=== PATIENT | female | born 2000 | race American Indian/Alaskan Native ===

== ENCOUNTER 2019-07-28 02:58 | Inpatient (IN) | payer MEDICAID ==
[2019-07-28] MEDS ORDERED: Misoprostol 400 MCG (4 X 100 MCG TAB) RECTAL PRN (03:58)
[2019-07-28] MEDS ORDERED: fentaNYL 100 MCG/2 ML SDV IVPUSH PRN (03:58)
[2019-07-28] MEDS ORDERED: Tranexamic Acid 1,000 MG in Sodium Chloride 0.9% 100 ML IV PRN (03:58)
[2019-07-28] MEDS ORDERED: Carboprost Tromethamine 250 MCG/1 ML Amp IM PRN (03:58)
[2019-07-28] MEDS ORDERED: Lactated Ringers 1,000 ML IV ONE (03:58)
[2019-07-28] MEDS ORDERED: Methylergonovine 0.2 MG/1 ML Amp IM PRN (03:58)
[2019-07-28] MEDS ORDERED: Sodium Chloride 0.9% 10 ML Syringe FLUSH PRN ×2 (03:58→23:09)
[2019-07-28] MEDS ORDERED: Acetaminophen 325 MG Tab PO PRN ×2 (03:58→23:09)
[2019-07-28] MEDS ORDERED: Lidocaine 1% 30 ML SDV INJECT PRN (03:58)
[2019-07-28] MEDS ORDERED: Ondansetron 4 MG/2 ML SDV IV PRN (03:58)
[2019-07-28] MEDS ORDERED: Oxytocin/Normal Saline 30 UNIT/500 ML BAG IV SCH ×5 (04:00→11:00)
--- NOTE | 2019-07-28 04:20 | PCM.SN ---
- Free Text/Narrative Note: OB History and Physical 07/28/19 Chief Complaint: rupture of membranes HPI: Derik is a 19 year old G1 at 39w3d (08/01/19) who presents with rupture of membranes around 0230 today with a large gush of fluid. She noted some back pain while at work yesterday around 1800, but it wasn't bad. She can feel the contractions, but noted they are not painful. Baby had a lower baseline on admission and US confirmed good cardiac movement. She reports active movement. ROS: Negative for headache, nausea, vomiting, diarrhea, fever, chills, hematuria , dysuria or bleeding per vagina. Allergies: NKDA Medications: vitamins Medical Hx: Acne Surgical Hx: Tonsillectomy Family Hx: Mom has HTN, brother and sister with asthma. No known history of bleeding/clotting disorders or genetic disorders. OB Hx: G1 Social Hx: Lives with boyfriend and his parents, originally from [place], [place]. Denies smoking, drinking or recreational drugs. Labs: Blood Type: A Positive Rubella: Non-Immune HBSAg: Nonreactive GBS: Negative Gonorrhea/Chlamydia: Not Detected HIV: Nonreactive RPR: Nonreactive Physical Exam: Vitals: BP 119/70, HR 98, Temp 98.2, SpO2 98% Gen: No distress CV: Well-perfused, 2+ distal pulses, regular rate and rhythm, no audible murmurs Resp: Non-labored, symmetrical chest expansion, clear to auscultation Abd: gravid, soft, non tender Ext: Moves all extremities, no edema. SVE: 2/75/-3 FHT: Baseline HR 110, moderate variability, accelerations present, no decelerations appreciated CTX: Q 2-7 mins Assessment: Derik is a 19 year old G1 at 39w3d (08/01/19) who presents with rupture of membranes around 0230. Cat I Strip. Plan: - admit for labor - routine cares - if no cervical change in 4 hours, will consider augmentation - pain medicine available when/if needed - will follow closely Vanesa Waters MD
[2019-07-28] MEDS ORDERED: Nalbuphine 10 MG/1 ML Vial IM PRN (04:21)
[2019-07-28] MEDS: Lactated Ringers 1,000 ML IV SCH ×3 (10:36→18:45)
--- NOTE | 2019-07-28 13:36 | PCM.PN ---
<Priscilla Breaux - Last Filed: 07/28/19 13:36> - General Info Date of Service: 07/28/19 Admission Dx/Problem (Free Text): Patient is a at 39w3d here for labor with spontaneous rupture of membranes. Subjective Update: Patient is starting to be more uncomfortable with contractions since Pitocin was started. She is at 6 of pitocin. She would like an intrathecal for pain relief at some point but will try the birthing ball and the tub first. - Review of Systems General: Denies: Fever, Chills HEENT: Reports: No Symptoms Pulmonary: Denies: Shortness of Breath, Cough Cardiovascular: Denies: Chest Pain Gastrointestinal: Denies: Abdominal Pain - Patient Data Vitals - Most Recent: Last Vital Signs Temp 98.8 F 07/28/19 10:35 Pulse 82 07/28/19 12:15 Resp 14 07/28/19 12:15 BP 122/81 07/28/19 12:15 Pulse Ox Weight - Most Recent: 73.482 kg I&O - Last 24 Hours: Intake & Output 07/27/19 07/28/19 07/28/19 22:59 06:59 14:59 Intake Total 620 Balance 620 Lab Results Last 24 Hours: Laboratory Results - last 24 hr 07/28/19 Range/Units 04:13 WBC 12.7 H (5.0-10.0) 10^3/uL RBC 3.78 L (4.2-5.4) 10^6/uL Hgb 10.4 L (12.0-16.0) g/dL Hct 32.3 L (37.0-47.0) % MCV 85.4 (80-100) fL MCH 27.5 (27.0-34.0) pg MCHC 32.2 L (33.0-35.0) g/dL Plt Count 254 (150-450) 10^3/uL Med Orders - Current: Current Medications Acetaminophen (Tylenol) 650 mg PO Q4H PRN PRN Reason: Pain (Mild 1-3) and fever Carboprost Tromethamine (Hemabate Ds) 250 mcg IM ASDIRECTED PRN PRN Reason: HEMORRHAGE Fentanyl (Sublimaze) 50 mcg IVPUSH Q1H PRN PRN Reason: Pain (moderate 4-6) Lactated Ringer's (Ringers, Lactated) 1,000 mls @ 125 mls/hr IV ASDIRECTED MARIELLE Last Admin: 07/28/19 10:36 Dose: 125 mls/hr Tranexamic Acid 1,000 mg/ (Sodium Chloride) 110 mls @ 660 mls/hr IV ONETIME PRN PRN Reason: Bleeding Oxytocin/Sodium Chloride (Pitocin In Ns 30 Unit/500 Ml) 30 unit in 500 mls @ 2 mls/hr IV TITRATE MARIELLE; Protocol Last Titration: 07/28/19 11:21 Dose: 4 munits/min, 4 mls/hr Lidocaine HCl (Xylocaine-Mpf 1%) 30 ml INJECT ASDIRECTED PRN PRN Reason: Perineal Repair Methylergonovine Maleate (Methergine) 0.2 mg IM ASDIRECTED PRN PRN Reason: Hemorrhage Misoprostol (Cytotec) 800 mcg RECTAL ASDIRECTED PRN PRN Reason: Hemorrhage Nalbuphine HCl (Nubain) 10 mg IM ONETIME PRN PRN Reason: Pain Ondansetron HCl (Zofran) 4 mg IV Q4H PRN PRN Reason: Nausea/Vomiting Sodium Chloride (Saline Flush) 10 ml FLUSH ASDIRECTED PRN PRN Reason: Keep Vein Open Discontinued Medications Lactated Ringer's (Ringers, Lactated) 1,000 mls @ 999 mls/hr IV .BOLUS ONE Stop: 07/28/19 04:58 Oxytocin/Sodium Chloride (Pitocin In Ns 30 Unit/500 Ml) 30 unit in 500 mls @ 2 mls/hr IV TITRATE MARIELLE; Protocol Oxytocin/Sodium Chloride (Pitocin In Ns 30 Unit/500 Ml) 30 unit in 500 mls @ 2 mls/hr IV TITRATE MARIELLE; Protocol Oxytocin/Sodium Chloride (Pitocin In Ns 30 Unit/500 Ml) 30 unit in 500 mls @ 2 mls/hr IV TITRATE MARIELLE; Protocol Oxytocin/Sodium Chloride (Pitocin In Ns 30 Unit/500 Ml) 30 unit in 500 mls @ 2 mls/hr IV TITRATE MARIELLE; Protocol - Exam General: Alert, Oriented, Mild Distress (Female) Exam: Cervical Dilatation (3.5/90/-2) - Problem List Review Problem List Initiated/Reviewed/Updated: Yes - My Orders Last 24 Hours: My Active Orders 07/28/19 10:35 Oxytocin/Normal Saline [Pitocin in NS 30 UNIT/500 ML] 30 unit in 500 ml IV TITRATE - Assessment Assessment:: 19 yo at 39w3d IUP with normal labor. - Plan Plan:: Continue current cares. GBS negative. anticipate vaginal delivery. <Vanesa Waters - Last Filed: 07/28/19 21:16> - Patient Data Vitals - Most Recent: Last Vital Signs Temp 97.7 F 07/28/19 15:30 Pulse 90 07/28/19 17:30 Resp 16 07/28/19 17:00 BP 125/64 07/28/19 17:30 Pulse Ox 97 07/28/19 17:00 I&O - Last 24 Hours: Intake & Output 07/28/19 07/28/19 07/28/19 06:59 14:59 22:59 Intake Total 620 3400 Output Total 1 225 Balance 619 3175 Lab Results Last 24 Hours: Laboratory Results - last 24 hr 07/28/19 Range/Units 04:13 WBC 12.7 H (5.0-10.0) 10^3/uL RBC 3.78 L (4.2-5.4) 10^6/uL Hgb 10.4 L (12.0-16.0) g/dL Hct 32.3 L (37.0-47.0) % MCV 85.4 (80-100) fL MCH 27.5 (27.0-34.0) pg MCHC 32.2 L (33.0-35.0) g/dL Plt Count 254 (150-450) 10^3/uL Med Orders - Current: Current Medications Acetaminophen (Tylenol) 650 mg PO Q4H PRN PRN Reason: Pain (Mild 1-3) and fever Carboprost Tromethamine (Hemabate Ds) 250 mcg IM ASDIRECTED PRN PRN Reason: HEMORRHAGE Fentanyl (Sublimaze) 50 mcg IVPUSH Q1H PRN PRN Reason: Pain (moderate 4-6) Lactated Ringer's (Ringers, Lactated) 1,000 mls @ 125 mls/hr IV ASDIRECTED MARIELLE Last Admin: 07/28/19 18:45 Dose: 125 mls/hr Tranexamic Acid 1,000 mg/ (Sodium Chloride) 110 mls @ 660 mls/hr IV ONETIME PRN PRN Reason: Bleeding Oxytocin/Sodium Chloride (Pitocin In Ns 30 Unit/500 Ml) 30 unit in 500 mls @ 2 mls/hr IV TITRATE MARIELLE; Protocol Last Titration: 07/28/19 15:05 Dose: 0 munits/min, 0 mls/hr Lidocaine HCl (Xylocaine-Mpf 1%) 30 ml INJECT ASDIRECTED PRN PRN Reason: Perineal Repair Methylergonovine Maleate (Methergine) 0.2 mg IM ASDIRECTED PRN PRN Reason: Hemorrhage Misoprostol (Cytotec) 800 mcg RECTAL ASDIRECTED PRN PRN Reason: Hemorrhage Nalbuphine HCl (Nubain) 10 mg IM ONETIME PRN PRN Reason: Pain Ondansetron HCl (Zofran) 4 mg IV Q4H PRN PRN Reason: Nausea/Vomiting Last Admin: 07/28/19 14:33 Dose: 4 mg Sodium Chloride (Saline Flush) 10 ml FLUSH ASDIRECTED PRN PRN Reason: Keep Vein Open Discontinued Medications Epinephrine HCl (Adrenalin) Confirm Administered Dose 1 mg .ROUTE .STK-MED ONE Stop: 07/28/19 14:36 Last Admin: 07/28/19 17:02 Dose: Not Given Fentanyl (Sublimaze) Confirm Administered Dose 100 mcg .ROUTE .STK-MED ONE Stop: 07/28/19 14:36 Last Admin: 07/28/19 17:02 Dose: Not Given Lactated Ringer's (Ringers, Lactated) 1,000 mls @ 999 mls/hr IV .BOLUS ONE Stop: 07/28/19 04:58 Last Admin: 07/28/19 14:45 Dose: 999 mls/hr Oxytocin/Sodium Chloride (Pitocin In Ns 30 Unit/500 Ml) 30 unit in 500 mls @ 2 mls/hr IV TITRATE MARIELLE; Protocol Oxytocin/Sodium Chloride (Pitocin In Ns 30 Unit/500 Ml) 30 unit in 500 mls @ 2 mls/hr IV TITRATE MARIELLE; Protocol Oxytocin/Sodium Chloride (Pitocin In Ns 30 Unit/500 Ml) 30 unit in 500 mls @ 2 mls/hr IV TITRATE MARIELLE; Protocol Oxytocin/Sodium Chloride (Pitocin In Ns 30 Unit/500 Ml) 30 unit in 500 mls @ 2 mls/hr IV TITRATE MARIELLE; Protocol Sodium Bicarbonate (Sodium Bicarbonate 4.2%) Confirm Administered Dose 2.5 meq .ROUTE .STK-MED ONE Stop: 07/28/19 14:37 Last Admin: 07/28/19 17:03 Dose: Not Given Sufentanil Citrate (Sufenta) Confirm Administered Dose 50 mcg .ROUTE .STK-MED ONE Stop: 07/28/19 14:36 Last Admin: 07/28/19 17:02 Dose: Not Given - My Orders Last 24 Hours: My Active Orders 07/28/19 03:58 Patient Status [ADT] Routine Communication Order [RC] ASDIRECTED Notify Provider Vital Signs OB [RC] ASDIRECTED Notify Provider [RC] PRN POC Labs [RC] ASDIRECTED Up ad Swati [RC] ASDIRECTED Vital Signs [RC] 08,20 Acetaminophen [Tylenol] 650 mg PO Q4H PRN Carboprost Tromethamine [Hemabate DS] 250 mcg IM ASDIRECTED PRN Lidocaine 1% [Xylocaine-MPF 1%] 30 ml INJECT ASDIRECTED PRN Methylergonovine [Methergine] 0.2 mg IM ASDIRECTED PRN Ondansetron [Zofran] 4 mg IV Q4H PRN Sodium Chloride 0.9% [Saline Flush] 10 ml FLUSH ASDIRECTED PRN Tranexamic Acid [Cyklokapron] 1,000 mg Sodium Chloride 0.9% [Normal Saline] 100 ml IV ONETIME fentaNYL [Sublimaze] 50 mcg IVPUSH Q1H PRN miSOPROStol [Cytotec] 800 mcg RECTAL ASDIRECTED PRN Saline Lock Insert [OM.PC] Routine Resuscitation Status Routine 07/28/19 03:59 Pump Management, Intrathecal [RC] ASDIRECTED 07/28/19 04:00 Lactated Ringers [Ringers, Lactated] 1,000 ml IV ASDIRECTED 07/28/19 04:21 Nalbuphine [Nubain] 10 mg IM ONETIME PRN - Plan Plan:: Patient seen and evaluated with the resident. I agree with the above assessment and plan. Vanesa Waters MD
[2019-07-28] MEDS ORDERED: EPINEPHrine 1 MG/1 ML Amp ONE (14:35)
[2019-07-28] MEDS ORDERED: fentaNYL 100 MCG/2 ML SDV ONE (14:35)
[2019-07-28] MEDS ORDERED: Sodium Bicarbonate 4.2% 2.5 MEQ/5 ML SDV ONE (14:36)
--- NOTE | 2019-07-28 15:04 | PCM.SN ---
- Free Text/Narrative Note: Intrathecal , sittimg position, sterile prep and drape. 1% lidocaine w bicarb for skinwheal to L2 L3 interspace, introducer, 24 ga pencan x 1. Pos CSF, neg heme, neg parasthesia. 0.1 ml pf 1:1000 epi, 15 mcg pf sufenta, 35 mcg pf fentanyl, 0.4 ml pf ns and 6 mg of 0.75% pf bupivacaine injected after CSF aspiration. Pt to L lateral position. Procedure time 1430 to 1500
--- NOTE | 2019-07-28 21:25 | PCM.DEL ---
<Priscilla Breaux - Last Filed: 07/28/19 21:17> L & D Note - General Info Date of Service: 07/28/19 - Delivery Note Labor: Augmented by Oxytocin Delivery Outcome: Livebirth Delivery Method: Spontaneous Vaginal Delivery-Single Delivery Mode: Spontaneous Presentation: Left Occiput Anterior (VIPIN) Nuchal Cord: None Anesthesia Type: Intrathecal Anesthetic: Lidocaine (Xylocaine) 1% Plain Local Anesthetic Volume: Other (10cc) Amniotic Fluid Description: Clear Episiotomy Type: None Laceration: 2nd Degree Suture type: Vicryl Suture size: 4-0 Placenta: Intact, Spontaneous Cord: 3 Vessels Estimated Blood Loss: 300 Resuscitation Needed: No : Bulb Syringe Provider: Priscilla Breaux Score 1 min: 8 Score 5 min: 9 Second Stage Interventions: Reports: Pushing, Left Side, Pushing, McRobert's Position, Pushing, Pulls Own Legs Back Delivery Comments (Free Text/Narrative):: Derik Hawkins is a 19 at 39w3d who presented with SROM with clear fluid. She was dilated to 2 cm on admission. Her labor was augmented with pitocin. She requested and received intrathecal. She progressed to full cervical dilation. She delivered a liveborn male infant from the OA position, over 2nd degree perineal laceration in the midline. Vigorous infant with spontaneous cry. Placenta delivered spontaneously intact with a 3 vessel cord. IV Pitocin was started shortly after delivery of placenta. EBL 300 mL. 2nd degree perineal laceration repaired with 4-0 Vicryl suture. Hemostasis confirmed. Mother and doing well. - General Info Date of Service: 07/28/19 - Patient Data Vitals - Most Recent: Last Vital Signs Temp 97.7 F 07/28/19 15:30 Pulse 90 07/28/19 17:30 Resp 16 07/28/19 17:00 BP 125/64 07/28/19 17:30 Pulse Ox 97 07/28/19 17:00 Weight - Most Recent: 73.482 kg I&O - Last 24 Hours: Intake & Output 07/28/19 07/28/19 07/28/19 06:59 14:59 22:59 Intake Total 620 3400 Output Total 1 225 Balance 619 3175 Lab Results Last 24 Hours: Laboratory Results - last 24 hr 07/28/19 Range/Units 04:13 WBC 12.7 H (5.0-10.0) 10^3/uL RBC 3.78 L (4.2-5.4) 10^6/uL Hgb 10.4 L (12.0-16.0) g/dL Hct 32.3 L (37.0-47.0) % MCV 85.4 (80-100) fL MCH 27.5 (27.0-34.0) pg MCHC 32.2 L (33.0-35.0) g/dL Plt Count 254 (150-450) 10^3/uL Med Orders - Current: Current Medications Acetaminophen (Tylenol) 650 mg PO Q4H PRN PRN Reason: Pain (Mild 1-3) and fever Carboprost Tromethamine (Hemabate Ds) 250 mcg IM ASDIRECTED PRN PRN Reason: HEMORRHAGE Fentanyl (Sublimaze) 50 mcg IVPUSH Q1H PRN PRN Reason: Pain (moderate 4-6) Lactated Ringer's (Ringers, Lactated) 1,000 mls @ 125 mls/hr IV ASDIRECTED MARIELLE Last Admin: 07/28/19 18:45 Dose: 125 mls/hr Tranexamic Acid 1,000 mg/ (Sodium Chloride) 110 mls @ 660 mls/hr IV ONETIME PRN PRN Reason: Bleeding Oxytocin/Sodium Chloride (Pitocin In Ns 30 Unit/500 Ml) 30 unit in 500 mls @ 2 mls/hr IV TITRATE MARIELLE; Protocol Last Titration: 07/28/19 15:05 Dose: 0 munits/min, 0 mls/hr Lidocaine HCl (Xylocaine-Mpf 1%) 30 ml INJECT ASDIRECTED PRN PRN Reason: Perineal Repair Methylergonovine Maleate (Methergine) 0.2 mg IM ASDIRECTED PRN PRN Reason: Hemorrhage Misoprostol (Cytotec) 800 mcg RECTAL ASDIRECTED PRN PRN Reason: Hemorrhage Nalbuphine HCl (Nubain) 10 mg IM ONETIME PRN PRN Reason: Pain Ondansetron HCl (Zofran) 4 mg IV Q4H PRN PRN Reason: Nausea/Vomiting Last Admin: 07/28/19 14:33 Dose: 4 mg Sodium Chloride (Saline Flush) 10 ml FLUSH ASDIRECTED PRN PRN Reason: Keep Vein Open Discontinued Medications Epinephrine HCl (Adrenalin) Confirm Administered Dose 1 mg .ROUTE .STK-MED ONE Stop: 07/28/19 14:36 Last Admin: 07/28/19 17:02 Dose: Not Given Fentanyl (Sublimaze) Confirm Administered Dose 100 mcg .ROUTE .STK-MED ONE Stop: 07/28/19 14:36 Last Admin: 07/28/19 17:02 Dose: Not Given Lactated Ringer's (Ringers, Lactated) 1,000 mls @ 999 mls/hr IV .BOLUS ONE Stop: 07/28/19 04:58 Last Admin: 07/28/19 14:45 Dose: 999 mls/hr Oxytocin/Sodium Chloride (Pitocin In Ns 30 Unit/500 Ml) 30 unit in 500 mls @ 2 mls/hr IV TITRATE MARIELLE; Protocol Oxytocin/Sodium Chloride (Pitocin In Ns 30 Unit/500 Ml) 30 unit in 500 mls @ 2 mls/hr IV TITRATE MARIELLE; Protocol Oxytocin/Sodium Chloride (Pitocin In Ns 30 Unit/500 Ml) 30 unit in 500 mls @ 2 mls/hr IV TITRATE MARIELLE; Protocol Oxytocin/Sodium Chloride (Pitocin In Ns 30 Unit/500 Ml) 30 unit in 500 mls @ 2 mls/hr IV TITRATE MARIELLE; Protocol Sodium Bicarbonate (Sodium Bicarbonate 4.2%) Confirm Administered Dose 2.5 meq .ROUTE .STK-MED ONE Stop: 07/28/19 14:37 Last Admin: 07/28/19 17:03 Dose: Not Given Sufentanil Citrate (Sufenta) Confirm Administered Dose 50 mcg .ROUTE .STK-MED ONE Stop: 07/28/19 14:36 Last Admin: 07/28/19 17:02 Dose: Not Given - Problem List Review Problem List Initiated/Reviewed/Updated: Yes - My Orders Last 24 Hours: My Active Orders 07/28/19 10:35 Oxytocin/Normal Saline [Pitocin in NS 30 UNIT/500 ML] 30 unit in 500 ml IV TITRATE - Assessment Assessment:: 19 yo at 39w3d with . <Vanesa Waters - Last Filed: 07/29/19 11:09> - Patient Data Vitals - Most Recent: Last Vital Signs Temp 98.4 F 07/29/19 08:00 Pulse 93 07/29/19 08:00 Resp 18 07/29/19 08:00 BP 114/71 07/29/19 08:00 Pulse Ox 99 07/29/19 08:00 I&O - Last 24 Hours: Intake & Output 07/28/19 07/29/19 07/29/19 22:59 06:59 14:59 Intake Total 3400 Output Total 925 Balance 2475 Lab Results Last 24 Hours: Laboratory Results - last 24 hr 07/29/19 Range/Units 05:53 WBC 18.9 H (5.0-10.0) 10^3/uL RBC 2.91 L (4.2-5.4) 10^6/uL Hgb 8.0 L D (12.0-16.0) g/dL Hct 25.2 L (37.0-47.0) % MCV 86.6 (80-100) fL MCH 27.5 (27.0-34.0) pg MCHC 31.7 L (33.0-35.0) g/dL Plt Count 229 (150-450) 10^3/uL Med Orders - Current: Current Medications Acetaminophen (Tylenol) 650 mg PO Q6H PRN PRN Reason: mild pain or fever Benzocaine/Menthol (Dermoplast Pain Relief Lawn) 0 gm TOP Q4H PRN PRN Reason: Perineal comfort measures Last Admin: 07/28/19 23:50 Dose: 1 spray Carboprost Tromethamine (Hemabate Ds) 250 mcg IM ASDIRECTED PRN PRN Reason: HEMORRHAGE Docusate Sodium (Colace) 100 mg PO BID PRN PRN Reason: Constipation Last Admin: 07/29/19 08:15 Dose: 100 mg Tranexamic Acid 1,000 mg/ (Sodium Chloride) 110 mls @ 660 mls/hr IV ONETIME PRN PRN Reason: Bleeding Oxytocin/Sodium Chloride (Pitocin In Ns 30 Unit/500 Ml) 30 unit in 500 mls @ 2 mls/hr IV TITRATE MARIELLE; Protocol Last Titration: 07/28/19 23:40 Dose: 0 mls/hr Ibuprofen (Motrin) 800 mg PO Q8H PRN PRN Reason: Mild Pain or Fever Last Admin: 07/29/19 08:15 Dose: 800 mg Methylergonovine Maleate (Methergine) 0.2 mg IM ASDIRECTED PRN PRN Reason: Hemorrhage Last Admin: 07/28/19 20:53 Dose: 0.2 mg Misoprostol (Cytotec) 800 mcg RECTAL ASDIRECTED PRN PRN Reason: Hemorrhage Prenat Multivit/[place]/Iron/Folic Ac ( Plus Iron) 1 each PO DAILY MARIELLE Last Admin: 07/29/19 08:15 Dose: 1 each Simethicone (Simethicone) 80 mg PO Q4H PRN PRN Reason: Gas Sodium Chloride (Saline Flush) 10 ml FLUSH ASDIRECTED PRN PRN Reason: Keep Vein Open Zolpidem Tartrate (Ambien) 5 mg PO BEDTIME PRN PRN Reason: Insomnia Discontinued Medications Acetaminophen (Tylenol) 650 mg PO Q4H PRN PRN Reason: Pain (Mild 1-3) and fever Epinephrine HCl (Adrenalin) Confirm Administered Dose 1 mg .ROUTE .STK-MED ONE Stop: 07/28/19 14:36 Last Admin: 07/28/19 17:02 Dose: Not Given Fentanyl (Sublimaze) 50 mcg IVPUSH Q1H PRN PRN Reason: Pain (moderate 4-6) Fentanyl (Sublimaze) Confirm Administered Dose 100 mcg .ROUTE .STK-MED ONE Stop: 07/28/19 14:36 Last Admin: 07/28/19 17:02 Dose: Not Given Lactated Ringer's (Ringers, Lactated) 1,000 mls @ 999 mls/hr IV .BOLUS ONE Stop: 07/28/19 04:58 Last Admin: 07/28/19 14:45 Dose: 999 mls/hr Lactated Ringer's (Ringers, Lactated) 1,000 mls @ 125 mls/hr IV ASDIRECTED MARIELLE Last Admin: 07/28/19 18:45 Dose: 125 mls/hr Oxytocin/Sodium Chloride (Pitocin In Ns 30 Unit/500 Ml) 30 unit in 500 mls @ 2 mls/hr IV TITRATE MARIELLE; Protocol Oxytocin/Sodium Chloride (Pitocin In Ns 30 Unit/500 Ml) 30 unit in 500 mls @ 2 mls/hr IV TITRATE MARIELLE; Protocol Oxytocin/Sodium Chloride (Pitocin In Ns 30 Unit/500 Ml) 30 unit in 500 mls @ 2 mls/hr IV TITRATE MARIELLE; Protocol Oxytocin/Sodium Chloride (Pitocin In Ns 30 Unit/500 Ml) 30 unit in 500 mls @ 2 mls/hr IV TITRATE MARIELLE; Protocol Lidocaine HCl (Xylocaine-Mpf 1%) 30 ml INJECT ASDIRECTED PRN PRN Reason: Perineal Repair Last Admin: 07/28/19 20:52 Dose: 30 ml Measles/Mumps/Rubella Vaccine Live (M-M-R Ii Vaccine) 0.5 ml SUBCUT .ONCE ONE Stop: 07/28/19 23:10 Nalbuphine HCl (Nubain) 10 mg IM ONETIME PRN PRN Reason: Pain Ondansetron HCl (Zofran) 4 mg IV Q4H PRN PRN Reason: Nausea/Vomiting Last Admin: 07/28/19 14:33 Dose: 4 mg Sodium Bicarbonate (Sodium Bicarbonate 4.2%) Confirm Administered Dose 2.5 meq .ROUTE .STK-MED ONE Stop: 07/28/19 14:37 Last Admin: 07/28/19 17:03 Dose: Not Given Sodium Chloride (Saline Flush) 10 ml FLUSH ASDIRECTED PRN PRN Reason: Keep Vein Open Sufentanil Citrate (Sufenta) Confirm Administered Dose 50 mcg .ROUTE .STK-MED ONE Stop: 07/28/19 14:36 Last Admin: 07/28/19 17:02 Dose: Not Given - My Orders Last 24 Hours: My Active Orders 07/28/19 21:00 Insert Urinary Catheter [OM.PC] Stat 07/28/19 23:09 Notify Provider Vital Signs OB [RC] ASDIRECTED Up ad Swati [RC] ASDIRECTED Vaccines to be Administered [RC] PER UNIT ROUTINE Vital Signs [RC] 08,20 Acetaminophen [Tylenol] 650 mg PO Q6H PRN Benzocaine/Menthol [Dermoplast Pain Relief Lawn] See Dose Instructions TOP Q4H PRN Docusate Sodium [Colace] 100 mg PO BID PRN Ibuprofen [Motrin] 800 mg PO Q8H PRN Simethicone 80 mg PO Q4H PRN Sodium Chloride 0.9% [Saline Flush] 10 ml FLUSH ASDIRECTED PRN Zolpidem [Ambien] 5 mg PO BEDTIME PRN Assess Lochia [WOMSER] Per Unit Routine Assess Uterine Involution [WOMSER] Per Unit Routine Breast Pump [WOMSER] Per Unit Routine Ice Therapy [OM.PC] Per Unit Routine Perineal Care [OM.PC] Per Unit Routine Saline Lock Insert [OM.PC] Urgent Sitz Bath [OM.PC] Per Unit Routine 07/28/19 Dinner Regular Diet [DIET] 07/29/19 09:00 Vit with Ca/FA/Iron [ Plus Iron] 1 each PO DAILY - Plan Plan:: I was present for delivery. I have reviewed the resident's note and agree with the assessment and plan. Vanesa Waters MD
[2019-07-28] MEDS ORDERED: Benzocaine/Menthol 20%-0.5% Spray 56 GM Canister TOP PRN (23:09)
[2019-07-28] MEDS ORDERED: Measles, Mumps & Rubella Vaccine 0.5 ML SDV SUBCUT ONE (23:09)
[2019-07-28] MEDS ORDERED: Simethicone 80 MG Tab.Chew PO PRN (23:09)
[2019-07-28] MEDS ORDERED: Zolpidem 5 MG Tab PO PRN (23:09)
[2019-07-28] MEDS: Ibuprofen 800 MG Tab PO PRN (23:50)
--- NOTE | 2019-07-29 07:25 | PCM.SN ---
<Priscilla Breaux - Last Filed: 07/29/19 07:37> - Free Text/Narrative Note: Progress Note Subjective: Derik is ambulating, voiding, tolerating regular diet all without difficulty. She reports her lochia is moderate. She is pumping and bottle feeding. She has no complaints. Objective: BP-101/64, P-97, RR-18 Uterus is firm, nontender at the umbilicus. Lower extremities are nontender and have trace edema. Assessment/Plan: 19 y.o day number one status post Will advance with routine cares. Anticipate discharge tomorrow. Priscilla Breaux MD PGY-3 <Vanesa Waters - Last Filed: 07/29/19 11:14> - Free Text/Narrative Note: I saw and examined the patient this morning. I agree with the residents assessment and plan. Vanesa Waters MD
[2019-07-29] MEDS: Docusate Sodium 100 MG Cap PO PRN ×2 (08:15→20:53)
[2019-07-29] MEDS: Ibuprofen 800 MG Tab PO PRN ×2 (08:15→20:52)
[2019-07-29] MEDS: Prenatal Multivitamin with Calcium/Folic Acid/Iron Tab PO SCH (08:15)
[2019-07-30 08:00] VITALS: BP 99/57; PULSE 86
[2019-07-30] MEDS: Ibuprofen 800 MG Tab PO PRN (08:53)
[2019-07-30] MEDS: Prenatal Multivitamin with Calcium/Folic Acid/Iron Tab PO SCH (08:53)
[2019-07-30] MEDS: Docusate Sodium 100 MG Cap PO PRN (08:54)
--- NOTE | 2019-07-30 11:52 | PCM.SN ---
<Priscilla Breaux - Last Filed: 07/30/19 11:47> - Free Text/Narrative Note: Obstetrics Progress Note Post Day Number 2 Patient: Derik Hawkins Admit Date: 07/28/19 Today's Date: 07/30/19 Subjective: Derik Hawkins is day 2 s/p . She reports her lochia is moderate . She is . She has good pain control. She has been advancing her diet and has good PO intake. Patient denies nausea or vomiting. Patient has been urinating spontaneously. She has has passed flatus. She has been ambulating. She no complaints. No acute events overnight. Objective: Vitals reviewed and wnl General: alert, in no acute distress Lungs: clear to auscultation bilaterally Heart: regular rate and rhythm, normal S1 S2, no murmurs Abdomen: soft, nontender, nondistended, bowel sounds present Uterus: firm, non tender 1 cm below the umbilicus. Lower extremities are non tender and have no edema. Skin: is warm and dry, well perfused no visible lesions RPR: non reactive Rubella: non immune GBS: negative Hbs: negative Assessment: 19 y.o. day 2 s/p . Patient has no complaints or concerns at this time No signs of anemia and appears stable. Ambulating well. Bowel function has returned. Urinating spontaneously. Pain well controlled on oral medications. Plan: Discharge to home today. Signs and symptoms of depression, mastitis and normal expectations for lochia discussed with the patient. Advised pelvic rest for 6 weeks. control to be discussed during the visit. Follow up in 6 weeks for post- visit. Priscilla Breaux MD PGY-3 <Vanesa Waters D - Last Filed: 08/02/19 09:09> - Free Text/Narrative Note: Patient was seen and examined with the resident. I agree with the above statement and plan. Vanesa Waters MD
--- NOTE | 2019-07-30 13:04 | PCM.DCSUM1 ---
<Priscilla Breaux - Last Filed: 07/30/19 13:05> Discharge Summary - Hospital Course Free Text/Narrative:: Summary of Hospital Course: Derik Hawkins is a 19 at 39w3d who presented to labor and delivery on 07/28/19 for SROM. She underwent and delivered a viable Male infant weighing 2860 grams EBL was 300 mL. . Patient had unremarkable hospital course. By day no 2 pt was doing well, ambulating, voiding, and tolerating general diet without difficulty. Pain was well controlled with oral OTC pain medications. Hence she was discharged to home. Blood type: A+, Rubella non immune. control to be discussed . Discharge Exam: See progress note from discharge date. Discharge (or Final) Diagnoses: 1. Intrauterine at 39w3d 2. on 07/28/19 Discharge Details: Admission Condition: good Discharged Condition: good Disposition: Home Diet: regular diet Activity: pelvic rest for 6 weeks. Follow-up with Dr. Waters in 6 weeks for visit. Diagnosis: Stroke: No - Discharge Data Discharge Date: 07/30/19 Discharge Disposition: Home, Self-Care 01 Condition: Good - Referral to Home Health Primary Care Physician: Vanesa aWters MD - Patient Summary/Data Consults: Consultations 07/29/19 12:12 Consult to Compass Operator [CONS] Routine - Patient Instructions Diet: Usual Diet as Tolerated Notify Provider of: Fever, Increased Pain, Swelling and Redness - Discharge Plan *PRESCRIPTION DRUG MONITORING PROGRAM REVIEWED*: Not Applicable *COPY OF PRESCRIPTION DRUG MONITORING REPORT IN PATIENT ANA LAURA: Not Applicable Home Medications: Home Meds PNV95/Ferrous Fumarate/FA [ Vitamin Tablet] 1 each PO DAILY 07/28/19 [ History] Patient Handouts: Home Care Instructions for Mom, Care of a Perineal Tear - Discharge Summary/Plan Comment DC Time >30 min.: Yes - Patient Data Vitals - Most Recent: Last Vital Signs Temp 97.5 F 07/30/19 07:59 Pulse 86 07/30/19 07:59 Resp 20 07/30/19 07:59 BP 99/57 L 07/30/19 07:59 Pulse Ox 100 07/30/19 07:59 Weight - Most Recent: 73.482 kg Med Orders - Current: Current Medications Acetaminophen (Tylenol) 650 mg PO Q6H PRN PRN Reason: mild pain or fever Benzocaine/Menthol (Dermoplast Pain Relief [place]) 0 gm TOP Q4H PRN PRN Reason: Perineal comfort measures Last Admin: 07/28/19 23:50 Dose: 1 spray Carboprost Tromethamine (Hemabate Ds) 250 mcg IM ASDIRECTED PRN PRN Reason: HEMORRHAGE Docusate Sodium (Colace) 100 mg PO BID PRN PRN Reason: Constipation Last Admin: 07/30/19 08:54 Dose: 100 mg Tranexamic Acid 1,000 mg/ (Sodium Chloride) 110 mls @ 660 mls/hr IV ONETIME PRN PRN Reason: Bleeding Oxytocin/Sodium Chloride (Pitocin In Ns 30 Unit/500 Ml) 30 unit in 500 mls @ 2 mls/hr IV TITRATE MARIELLE; Protocol Last Titration: 07/28/19 23:40 Dose: 0 mls/hr Ibuprofen (Motrin) 800 mg PO Q8H PRN PRN Reason: Mild Pain or Fever Last Admin: 07/30/19 08:53 Dose: 800 mg Methylergonovine Maleate (Methergine) 0.2 mg IM ASDIRECTED PRN PRN Reason: Hemorrhage Last Admin: 07/28/19 20:53 Dose: 0.2 mg Misoprostol (Cytotec) 800 mcg RECTAL ASDIRECTED PRN PRN Reason: Hemorrhage Prenat Multivit/[place]/Iron/Folic Ac ( Plus Iron) 1 each PO DAILY MARIELLE Last Admin: 07/30/19 08:53 Dose: 1 each Simethicone (Simethicone) 80 mg PO Q4H PRN PRN Reason: Gas Sodium Chloride (Saline Flush) 10 ml FLUSH ASDIRECTED PRN PRN Reason: Keep Vein Open Zolpidem Tartrate (Ambien) 5 mg PO BEDTIME PRN PRN Reason: Insomnia Discontinued Medications Acetaminophen (Tylenol) 650 mg PO Q4H PRN PRN Reason: Pain (Mild 1-3) and fever Epinephrine HCl (Adrenalin) Confirm Administered Dose 1 mg .ROUTE .STK-MED ONE Stop: 07/28/19 14:36 Last Admin: 07/28/19 17:02 Dose: Not Given Fentanyl (Sublimaze) 50 mcg IVPUSH Q1H PRN PRN Reason: Pain (moderate 4-6) Fentanyl (Sublimaze) Confirm Administered Dose 100 mcg .ROUTE .STK-MED ONE Stop: 07/28/19 14:36 Last Admin: 07/28/19 17:02 Dose: Not Given Lactated Ringer's (Ringers, Lactated) 1,000 mls @ 999 mls/hr IV .BOLUS ONE Stop: 07/28/19 04:58 Last Admin: 07/28/19 14:45 Dose: 999 mls/hr Lactated Ringer's (Ringers, Lactated) 1,000 mls @ 125 mls/hr IV ASDIRECTED MARIELLE Last Admin: 07/28/19 18:45 Dose: 125 mls/hr Oxytocin/Sodium Chloride (Pitocin In Ns 30 Unit/500 Ml) 30 unit in 500 mls @ 2 mls/hr IV TITRATE MARIELLE; Protocol Oxytocin/Sodium Chloride (Pitocin In Ns 30 Unit/500 Ml) 30 unit in 500 mls @ 2 mls/hr IV TITRATE MARIELLE; Protocol Oxytocin/Sodium Chloride (Pitocin In Ns 30 Unit/500 Ml) 30 unit in 500 mls @ 2 mls/hr IV TITRATE MARIELLE; Protocol Oxytocin/Sodium Chloride (Pitocin In Ns 30 Unit/500 Ml) 30 unit in 500 mls @ 2 mls/hr IV TITRATE MARIELLE; Protocol Lidocaine HCl (Xylocaine-Mpf 1%) 30 ml INJECT ASDIRECTED PRN PRN Reason: Perineal Repair Last Admin: 07/28/19 20:52 Dose: 30 ml Measles/Mumps/Rubella Vaccine Live (M-M-R Ii Vaccine) 0.5 ml SUBCUT .ONCE ONE Stop: 07/28/19 23:10 Last Admin: 07/29/19 20:53 Dose: 0.5 ml Nalbuphine HCl (Nubain) 10 mg IM ONETIME PRN PRN Reason: Pain Ondansetron HCl (Zofran) 4 mg IV Q4H PRN PRN Reason: Nausea/Vomiting Last Admin: 07/28/19 14:33 Dose: 4 mg Sodium Bicarbonate (Sodium Bicarbonate 4.2%) Confirm Administered Dose 2.5 meq .ROUTE .STK-MED ONE Stop: 07/28/19 14:37 Last Admin: 07/28/19 17:03 Dose: Not Given Sodium Chloride (Saline Flush) 10 ml FLUSH ASDIRECTED PRN PRN Reason: Keep Vein Open Sufentanil Citrate (Sufenta) Confirm Administered Dose 50 mcg .ROUTE .STK-MED ONE Stop: 07/28/19 14:36 Last Admin: 07/28/19 17:02 Dose: Not Given <Vanesa Waters - Last Filed: 08/02/19 09:12> Discharge Summary - Referral to Home Health Primary Care Physician: Vanesa Waters MD - Patient Summary/Data Consults: Consultations 07/29/19 12:12 Consult to Compass Operator [CONS] Routine - Discharge Summary/Plan Comment Discharge Summary/Plan Comment: Patient was seen and examined with the resident. I agree with the above statement and plan. The patient will follow up in 6-8 weeks, or sooner if needed. Vanesa Waters MD
== END 2019-07-30 19:30 | disposition home or self-care (01) | DRG 807 ==
LOC: DL.OBCHECK 02:58 → DL.OB 03:58 → INTOOBSV 03:58 → OBSVTOIN 20:47 → DL.OB 20:47 → DL.MS 07-29 10:58
PROVIDERS: ADMIT Family Medicine; ATTEND Family Medicine
PROC: 10E0XZZ Delivery of Products of Conception, External Approach (ICD-10-PCS; principal; 2019-07-28)
PROC: 0HQ9XZZ Repair Perineum Skin, External Approach (ICD-10-PCS; 2019-07-28)
PROC: 3E0234Z Introduction of Serum, Toxoid and Vaccine into Muscle, Percutaneous Approach (ICD-10-PCS; 2019-07-28)
DX: O70.1 Second degree perineal laceration during delivery (principal); Z37.0 Single live birth; Z3A.39 39 weeks gestation of pregnancy; Z90.89 Acquired absence of other organs; Z23 Encounter for immunization
CPT/HCPCS: 36415; 51701; 59409; 76815; 85027; 90707; A9270-GY; G0010; J2001; J2210; J2405; J2590; J7120

== ENCOUNTER 2021-03-12 03:31 | Inpatient (IN) | payer MEDICAID ==
[2021-03-12] MEDS ORDERED: Sodium Chloride 0.9% 10 ML Syringe FLUSH PRN ×3 (04:49→15:46)
[2021-03-12] MEDS: Lactated Ringers 1,000 ML IV SCH ×2 (06:20→09:40)
[2021-03-12] MEDS ORDERED: Lactated Ringers 1,000 ML IV SCH (06:30)
[2021-03-12] MEDS ORDERED: fentaNYL 100 MCG/2 ML SDV ONE ×2 (06:54→12:28)
[2021-03-12] MEDS ORDERED: Sodium Bicarbonate 4.2% 2.5 MEQ/5 ML SDV ONE ×4 (06:55→12:28)
[2021-03-12] MEDS ORDERED: Methylergonovine 0.2 MG/1 ML Amp IM PRN (06:55)
[2021-03-12] MEDS ORDERED: Acetaminophen 325 MG Tab PO PRN (06:55)
[2021-03-12] MEDS ORDERED: fentaNYL 100 MCG/2 ML SDV ITHECAL ONE ×2 (06:55→12:28)
[2021-03-12] MEDS ORDERED: EPINEPHrine 1 MG/1 ML Amp ONE ×3 (06:55→12:28)
[2021-03-12] MEDS ORDERED: Sodium Chloride 0.9% 20 ML SDV ONE ×2 (06:55→12:28)
[2021-03-12] MEDS ORDERED: Misoprostol 400 MCG (4 X 100 MCG TAB) RECTAL PRN (06:55)
[2021-03-12] MEDS ORDERED: Ondansetron 4 MG/2 ML SDV IVPUSH PRN (06:55)
[2021-03-12] MEDS ORDERED: Lidocaine 1% 30 ML SDV INJECT PRN (06:55)
[2021-03-12] MEDS ORDERED: Lactated Ringers 1,000 ML IV ONE (06:55)
[2021-03-12] MEDS ORDERED: Carboprost Tromethamine 250 MCG/1 ML Amp IM PRN (06:55)
[2021-03-12] MEDS ORDERED: Tranexamic Acid 1,000 MG in Sodium Chloride 0.9% 100 ML IV PRN (06:55)
[2021-03-12] MEDS ORDERED: Oxytocin/Normal Saline 30 UNIT/500 ML BAG IV SCH ×2 (07:00→07:45)
[2021-03-12] MEDS ORDERED: ePHEDrine 50 MG/ML SDV ONE (07:15)
[2021-03-12] MEDS ORDERED: ePHEDrine 50 MG/ML SDV IVPUSH ONE ×3 (07:19→08:06)
--- NOTE | 2021-03-12 07:55 | OBOUT ---
DATE: 03/12/2021 TIME: 3:50 to 4:10. REASON FOR NST: 1. Intrauterine at 38 and 2/7 weeks, confirmed with 21 and 3/7 weeks ultrasound. 2. Active labor upon admission. 3. GBS negative. 4. Hepatitis C antibody positive. 5. History of herpes, on Valtrex. No active lesions found. 6. Anemia with hemoglobin 9.7. 7. G2, P1-0-0-1. NST INTERPRETATION: During this time period, heart tone baseline is approximately 125 to 130 and at least two 15 x 15 beats per minute accelerations, making this strip reactive as well as noted to be reassuring. Tocometer reveals 1 reading contractions, 4 to 5 contractions felt by the patient during this time. Blood pressure 99/65, heart rate 118. ASSESSMENT AND PLAN: 1. Nonstress test, reactive and reassuring. 2. Tocometer with contractions. PLAN: Please see H and P for further details. [facility] /[id number]
--- NOTE | 2021-03-12 08:12 | PCM.SN.2 ---
- Free Text/Narrative Note: Intrathecal. Sitting position, sterile prep and drape. 1 % lidocaine w bicarb for skinwheal to L2 L3 interspace. Introducer, 24 ga pencan x 1. Pos CSF, neg heme, neg parasthesia. 15 mcg pf sufenta, 35 mcg pf fentanyl, 0.4 ml pf NS, 0.1 ml 1:1000 pf epi and 6 mg of 0.75% pf marcaine injected after CSF aspiaration. Pt to L lateral position. Procedure time 0655 to 0799
--- NOTE | 2021-03-12 08:27 | HP ---
PATIENT IDENTIFICATION: Derik Hawkins is a 21-year-old, G2, P1-0-0-1 intrauterine at 38 and 2/7 weeks, confirmed with 21 and 3/7 weeks ultrasound, who presents with contractions. HISTORY OF PRESENT ILLNESS: The patient states contractions started at approximately 2 a.m., increasing in frequency, intensity to the point that they are coming every couple of minutes, felt in the lower abdomen, severe enough that she is breathing through them, worsening over time. Nothing seems to make them better. Associated with this has been some minimal bloody show. No leaking of fluid. To put this in context, she is GBS negative, has history of herpes in the distant past, been on Valtrex. No active lesions or pain elicited. She is also hepatitis C antibody positive and had history of anemia earlier in the . Records were called for, reviewed as below, and supplemented by the patient's history. OB HISTORY: 07/28/2019, delivered at 39 and 3/7 weeks, term male, 6 pounds 3.8 ounces. [facility]: ABO blood type A positive, negative antibody. Rubella immune. Syphilis antibody is nonreactive. Negative hepatitis B surface antigen. HIV, GC and chlamydia with hepatitis C antibody reactive. Wet prep negative. 1 hour GTT on 12/30/2020 was 116 with a hemoglobin of 10.4. GBS was negative on 02/24/2021. ALLERGIES: None. MEDICATIONS: 1. vitamins daily. 2. Valtrex 500 mg tablets as instructed. PAST MEDICAL HISTORY: 1. 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 2. Exposure to hepatitis C with hepatitis C antibody being positive. PAST SURGICAL HISTORY: Tonsillectomy. FAMILY HISTORY: Brother and sister with asthma. Maternal grandmother with diabetes. Mother had enlarged heart/hypertension. Negative family history of clotting disorders, anesthesia problems, or bleeding problems. SOCIAL HISTORY: The patient lives with Jim Zuniga in [facility]. They have been together for at least 4 years. They have a son at home. The patient has been working at the [employer]. REVIEW OF SYSTEMS: Quickly obtained, otherwise reviewed fully and felt to be noncontributory. OBJECTIVE: Vital Signs: Blood pressure 108/70, heart rate 125 with heart rate coming down to the 100s range. Appearance: Female, appears stated age, acting appropriate, nontoxic appearance. Breathing through contractions. Answering questions appropriately in between. HEENT: Head: Atraumatic. EOMs are intact. PERRLA. No scleral icterus. No obvious otorhinorrhea. Mucous membranes are moist. Neck: No obvious tenderness. Lungs: Clear to auscultation bilaterally. No increased work of breathing. Heart: S1, S2. Regular rate and rhythm. Abdomen: Gravid. Kings's is indeterminate. Nontender and nondistended. Bowel sounds are positive. No organomegaly, pulsatile masses, or obvious hernias. No rebound, rigidity, or guarding with monitors applied. Genitourinary: Vaginal exam done by nurse initially upon admission revealed her to be 3 cm, vertex suspected, and subsequent re-evaluation less than 2 hours later, she was with increasing pain, type 4+ cm, and still having contractions with vertex being suspected and bag of water suspected to be intact. Extremities: Trace pedal edema. Deep tendon reflexes 2/4 to 3/4 bilaterally and symmetric in lower extremities. Psychiatric: Mood and affect congruent. Judgement and insight intact. Skin: Without any cyanosis, clubbing, or jaundice. LABORATORY DATA: Labs do reveal a hemoglobin of 9.7, platelets within normal limits, and coronavirus disease being negative. heart tones initially 130s, felt to be reactive and reassuring. Tocometer revealed contractions initially every 4 to 5 minutes, currently it is coming every 2 to 4 minutes with the heart tones in the 130s, continuing with reactive strip. ASSESSMENT AND PLAN: 1. Intrauterine at 38 and 2/7 weeks, confirmed with 21 and 3/7 weeks ultrasound. 2. Active labor. 3. GBS negative. 4. Hepatitis C antibody positive. 5. History of herpes, on Valtrex. No active lesions elicited. 6. Anemia with hemoglobin 9.7. 7. G2, P1-0-0-1. PLAN: The patient will be admitted. Requesting intrathecal and will be given as soon as able, and we will continue to follow clinically and closely at this point in time. [facility] /[id number]
--- NOTE | 2021-03-12 10:58 | PN ---
DATE: 03/12/2021 SUBJECTIVE: The patient is comfortable status post intrathecal. OBJECTIVE: Vital Signs: heart tones in the 130s range. Two accelerations seen. Accelerations noted with vaginal exam as well. Tocometer revealing occasional contractions. Vaginal: Reveals to be 4 cm, 60% effaced, -1 station, vertex suspected. Artificial rupture of membranes done after discussion with the patient yielding minimal amount of fluid, appears clear in nature. ASSESSMENT AND PLAN: Intrauterine at 38 and 2/7 weeks, confirmed with 21 and 3/7 weeks ultrasound, admitted in active labor; group B Streptococcus negative; hepatitis C antibody positive; history of herpes, on Valtrex, no lesions seen with exam at this time and none noted by the patient with anemia, hemoglobin 9.7; and G2, P1-0-0-1. PLAN: We will start Pitocin augmentation, follow clinically and closely. The patient understands and agrees with the above treatment plan. [facility] /[id number]
[2021-03-12] MEDS ORDERED: Sodium Chloride 0.9% 1,000 ML IV SCH (11:45)
[2021-03-12] MEDS ORDERED: EPINEPHrine 1 MG/ML SDV ONE (12:28)
[2021-03-12] MEDS ORDERED: ePHEDrine 50 MG/ML SDV IVPUSH PRN (12:45)
--- NOTE | 2021-03-12 12:46 | PCM.SN.2 ---
- Free Text/Narrative Note: Intrathecal. Sitting position, sterile prep and drape. 1 % lidocaine w bicarb for skinwheal to L2 L3 interspace. Introducer, 24 ga pencan x 1. Pos CSF, neg heme, neg parasthesia. 15 mcg pf sufenta, 35 mcg pf fentanyl, 0.4 ml pf NS, 0.1 ml 1:1000 pf epi and 6 mg of 0.75% pf marcaine injected after CSF aspiaration. Pt to L lateral position. Procedure time 1230 to 1300
--- NOTE | 2021-03-12 13:31 | PN ---
DATE: 03/12/2021 SUBJECTIVE: The patient is comfortable, status post intrathecal. OBJECTIVE: VITAL SIGNS: heart tones reactive in the 120s, and reactive and reassuring. Tocometer reveals contractions every couple of minutes. Pitocin was on subsequently. VAGINAL: Reveals her to be 4 cm, 50% to 60% effaced, -1 to - 2 station, unchanged from previous. After discussion with the patient, bag of water was unsure if ruptured artificial rupture of membranes was attempted with amniohook and minimal fluid returned. IUPC was subsequently placed after discussion with the patient as well. Shortly thereafter, heart tones dropped down into the 60s, and at that time, Pitocin was stopped, IV fluids were increased, oxygen was started, positional changes ensued, and despite this, continued bradycardia was noted in the 90s. Subsequently, discussion was made and scalp electrode was applied emergently as difficulty detecting heart tones. Continued positional changes were done and heart rate is now in the 110s to 120s range. I did discuss with the patient potential need for a stat . I just called the crew in as well as the assist, and at current time of dictation, heart tones in 120s. We will follow closely at this point in time, have them open the operating room to be ready in case another deceleration occurs, and we will continue to follow clinically and closely at this point in time. ASSESSMENT AND PLAN: Intrauterine at 38 and 2/7 weeks, confirmed with 21 and 3/7 weeks ultrasound with concerns with heart tones, now improved with positional changes with a deceleration that lasted approximately 6 to 7 minutes down into the 60s, that is the lowest when detected. Scalp electrode applied emergently to determine status. I did discuss with the patient potential need for a stat , and at this point in time, heart tones are more reassuring. We will continue to follow clinically and closely. We will have the crew open and be ready in case, as well as our assist be ready, and discussed this with the patient. She understands and agrees with the above treatment plan. Position changes ensued, and this may have helped with heart tones. We will follow closely at this point in time. [facility] /[id number] MARIANELA
--- NOTE | 2021-03-12 13:42 | PN ---
DATE: 03/12/2021 SUBJECTIVE: The patient is comfortable status post intrathecal. I did discuss with her when decelerations were noted, potential need for stat . I did discuss with her and her male partner, risks, benefits, alternatives, and complications of including, but limited to infection; bleeding; damage to organs such as bowel, bladder, tubes, uterus, ovaries, and sometimes fetus; rarely needing a blood transfusion or further surgery; and even rare maternal or . She understands and agrees and wished to proceed if needed. Verbal consent was obtained, written consent will be obtained, and we will continue to follow status closely at this point in time. OBJECTIVE: heart tones now in the 130s range. Two accelerations are seen. Tocometer reveals irregular contractions at least 4 minutes apart and the contractions are only reaching a peak around 40 with the IUPC in place. Vaginal exam deferred at this point in time. ASSESSMENT AND PLAN: Intrauterine at 38 and 2/7 weeks, admitted in active labor, now status post artificial rupture of membranes. Pitocin augmentation now stopped. IUPC and FSE placement for monitoring as concerns with heart tones and contraction patterns with slow cervical dilation. At current time of dictation, status is reassuring. We will continue to follow clinically and closely. I did discuss with the patient if there are any signs of distress or concerns of compromise, potential need for section. She understands and agrees and wished to proceed if needed. Verbal consent was obtained, written consent will be obtained. will start pitocin if continued reassuring status. [facility] /[id number] [facility]
[2021-03-12] MEDS ORDERED: Zolpidem 5 MG Tab PO PRN (15:46)
[2021-03-12] MEDS ORDERED: Benzocaine/Menthol 20%-0.5% Spray 78 GM Cannister TOP PRN (15:46)
[2021-03-12] MEDS ORDERED: Oxytocin 10 Units/1 ML SDV IM PRN (15:46)
[2021-03-12] MEDS ORDERED: Simethicone 80 MG Tab.Chew PO PRN (15:46)
--- NOTE | 2021-03-12 15:58 | PCM.DEL ---
Vacuum Extractor Progress Note - Alternative Labor Strategies Considered Alternative Labor Strategies Considered:: Reports: Yes Strategies Considered:: Reports: Contraction Intensity Adequate, Position Changes Used to Facilitate Rotation & Descent, Empty Bladder, Rest Indications Considered:: Reports: Yes Indications:: Reports: Suspicion of Immediate or Potential Compromise Time Out:: Reports: Yes - Patient Prepared Patient Prepared:: Reports: Yes Informed Consent:: Reports: Yes, Verbal Risks: Reports: Yes Risks Include:: Reports: Laceration, Shoulder Dystocia, Maternal Injury Anesthesia/Analgesia Adequate:: Reports: Yes - Probability of Success High Probability of Success:: Reports: Yes Weight Estimated:: Reports: AGA Patient Diabetic:: Reports: No Pelvis Adequate:: Reports: No Position:: CARLOTTA Asynclitic:: Reports: No Station:: Vertex seen splitting labia - Application Time Maximum Application Time & Number of Pop-Offs Predetermined:: Reports: Yes Number of Times Cup Disengaged:: 0 (see nurses notes for vaccum details and times) Type of Vacuum Used:: Reports: Cup: Soft (kiwi vacuum larger cup) Vacuum Extraction: Successful - Exit Strategy Exit strategy available:: Reports: Yes and resuscitation teams readily available:: Reports: Yes - General Info Date of Service: 03/12/21 - Patient Data Vitals - Most Recent: Last Vital Signs Temp 98.0 F 03/12/21 12:30 Pulse 94 03/12/21 14:00 Resp 16 03/12/21 13:45 BP 82/46 L 03/12/21 14:00 Pulse Ox 100 03/12/21 13:45 Weight - Most Recent: 79.832 kg Lab Results Last 24 Hours: Laboratory Results - last 24 hr 03/12/21 03/12/21 Range/Units 04:00 05:50 WBC 10.6 H (5.0-10.0) 10^3/uL RBC 3.58 L (4.2-5.4) 10^6/uL Hgb 9.7 L D (12.0-16.0) g/dL Hct 31.2 L (37.0-47.0) % MCV 87.2 (80-100) fL MCH 27.1 (27.0-34.0) pg MCHC 31.1 L (33.0-35.0) g/dL Plt Count 264 (150-450) 10^3/uL SARS-CoV-2 RNA (ALESSANDRO) Negative (NEGATIVE) Med Orders - Current: Current Medications Acetaminophen (Acetaminophen 325 Mg Tab) 650 mg PO Q4H PRN PRN Reason: Pain (Mild 1-3) and fever Benzocaine/Menthol (Benzocaine/Menthol 20%-0.5% [place] 78 Gm Cannister) 0 gm TOP Q4H PRN PRN Reason: Perineal comfort measures Carboprost Tromethamine (Carboprost Tromethamine 250 Mcg/1 Ml Amp) 250 mcg IM ASDIRECTED PRN PRN Reason: HEMORRHAGE Docusate Sodium (Docusate Sodium 100 Mg Cap) 100 mg PO BID PRN PRN Reason: Constipation Ephedrine Sulfate (Ephedrine 50 Mg/Ml Sdv) 10 mg IVPUSH ASDIRECTED PRN PRN Reason: decreased blood pressure Last Admin: 03/12/21 12:42 Dose: 10 mg Documented by: Lactated Ringer's (Ringers, Lactated) 1,000 mls @ 125 mls/hr IV ASDIRECTED MARIELLE Last Admin: 03/12/21 09:40 Dose: 125 mls/hr Documented by: Tranexamic Acid 1,000 mg/ (Sodium Chloride) 110 mls @ 660 mls/hr IV ONETIME PRN PRN Reason: Bleeding Oxytocin/Sodium Chloride (Pitocin In Ns 30 Unit/500 Ml) 30 unit in 500 mls @ 2 mls/hr IV TITRATE MARIELLE; Protocol Last Titration: 03/12/21 13:44 Dose: 12 munits/min, 12 mls/hr Documented by: Oxytocin/Sodium Chloride (Pitocin In Ns 30 Unit/500 Ml) 30 unit in 500 mls @ 500 mls/hr IV TITRATE MARIELLE; Protocol Sodium Chloride (Normal Saline) 1,000 mls @ 200 mls/hr IV ASDIRECTED MARIELLE Last Infusion: 03/12/21 12:20 Dose: 200 mls/hr Documented by: Cefazolin Sodium 1 gm/ Sodium (Chloride) 50 mls @ 100 mls/hr IV Q8HR MARIELLE Stop: 03/13/21 14:29 Ibuprofen (Ibuprofen 800 Mg Tab) 800 mg PO Q8H PRN PRN Reason: Pain Lidocaine HCl (Lidocaine 1% 30 Ml Sdv) 30 ml INJECT ASDIRECTED PRN PRN Reason: Perineal Repair Methylergonovine Maleate (Methylergonovine 0.2 Mg/1 Ml Amp) 0.2 mg IM ASDIRECTED PRN PRN Reason: Hemorrhage Misoprostol (Misoprostol 400 Mcg (4 X 100 Mcg Tab)) 800 mcg RECTAL ASDIRECTED PRN PRN Reason: Hemorrhage Last Admin: 03/12/21 15:31 Dose: 800 mcg Documented by: Ondansetron HCl (Ondansetron 4 Mg/2 Ml Sdv) 4 mg IVPUSH Q4H PRN PRN Reason: Nausea/Vomiting Oxytocin (Oxytocin 10 Units/1 Ml Sdv) 10 unit IM ONETIME PRN PRN Reason: Bleeding Prenat Multivit/Cardiothoracic Anesthesia Technician/Iron/Folic Ac ( Multivitamin With Calcium/Folic Acid/Iron Tab) 1 each PO DAILY MARIELLE Simethicone (Simethicone 80 Mg Tab.Chew) 80 mg PO Q4H PRN PRN Reason: Gas Sodium Chloride (Sodium Chloride 0.9% 10 Ml Syringe) 10 ml FLUSH ASDIRECTED PRN PRN Reason: Keep Vein Open Sodium Chloride (Sodium Chloride 0.9% 10 Ml Syringe) 10 ml FLUSH ASDIRECTED PRN PRN Reason: Keep Vein Open Zolpidem Tartrate (Zolpidem 5 Mg Tab) 5 mg PO BEDTIME PRN PRN Reason: Insomnia Discontinued Medications Ephedrine Sulfate (Ephedrine 50 Mg/Ml Sdv) Confirm Administered Dose 50 mg .ROUTE .STK-MED ONE Stop: 03/12/21 07:16 Last Admin: 03/12/21 07:20 Dose: Not Given Documented by: Ephedrine Sulfate (Ephedrine 50 Mg/Ml Sdv) 10 mg IVPUSH ONETIME ONE Stop: 03/12/21 07:20 Last Admin: 03/12/21 07:22 Dose: 10 mg Documented by: Ephedrine Sulfate (Ephedrine 50 Mg/Ml Sdv) 10 mg IVPUSH ONETIME ONE Stop: 03/12/21 07:25 Last Admin: 03/12/21 07:30 Dose: 10 mg Documented by: Ephedrine Sulfate (Ephedrine 50 Mg/Ml Sdv) 10 mg IVPUSH ONETIME ONE Stop: 03/12/21 08:07 Last Admin: 03/12/21 08:30 Dose: 10 mg Documented by: Epinephrine HCl (Epinephrine 1 Mg/1 Ml Amp) Confirm Administered Dose 1 mg .ROUTE .STK-MED ONE Stop: 03/12/21 06:56 Last Admin: 03/12/21 07:20 Dose: Not Given Documented by: Epinephrine HCl (Epinephrine 1 Mg/1 Ml Amp) Confirm Administered Dose 1 mg .ROUTE .STK-MED ONE Stop: 03/12/21 12:29 Last Admin: 03/12/21 12:55 Dose: Not Given Documented by: Fentanyl (Fentanyl 100 Mcg/2 Ml Sdv) Confirm Administered Dose 100 mcg .ROUTE .STK-MED ONE Stop: 03/12/21 06:55 Last Admin: 03/12/21 07:20 Dose: Not Given Documented by: Fentanyl (Fentanyl 100 Mcg/2 Ml Sdv) Confirm Administered Dose 100 mcg .ROUTE .STK-MED ONE Stop: 03/12/21 12:29 Last Admin: 03/12/21 12:55 Dose: Not Given Documented by: Lactated Ringer's (Ringers, Lactated) 1,000 mls @ 125 mls/hr IV ASDIRECTED MARIELLE Lactated Ringer's (Ringers, Lactated) 1,000 mls @ 500 mls/hr IV BOLUS ONE Stop: 03/12/21 08:54 Last Admin: 03/12/21 07:16 Dose: 500 mls/hr Documented by: Sodium Bicarbonate (Sodium Bicarbonate 4.2% 2.5 Meq/5 Ml Sdv) Confirm Administered Dose 2.5 meq .ROUTE .STK-MED ONE Stop: 03/12/21 06:56 Last Admin: 03/12/21 07:20 Dose: Not Given Documented by: Sodium Bicarbonate (Sodium Bicarbonate 4.2% 2.5 Meq/5 Ml Sdv) Confirm Administered Dose 2.5 meq .ROUTE .STK-MED ONE Stop: 03/12/21 12:29 Last Admin: 03/12/21 12:55 Dose: Not Given Documented by: Sufentanil Citrate (Sufentanil 50 Mcg/1 Ml Amp) Confirm Administered Dose 50 mcg .ROUTE .STK-MED ONE Stop: 03/12/21 06:56 Last Admin: 03/12/21 07:20 Dose: Not Given Documented by: Sufentanil Citrate (Sufentanil 50 Mcg/1 Ml Amp) Confirm Administered Dose 50 mcg .ROUTE .STK-MED ONE Stop: 03/12/21 12:29 Last Admin: 03/12/21 12:55 Dose: Not Given Documented by: - Problem List Review Problem List Initiated/Reviewed/Updated: Yes - My Orders Last 24 Hours: My Active Orders 03/12/21 04:49 Peripheral IV Care [RC] 06,, Peripheral IV Insertion Adult [OM.PC] Routine 03/12/21 06:22 Nitrous Oxide Delivery [RC] ASDIRECTED OB Discontinue Nitrous Oxide [RC] ASDIRECTED Pump Management, Intrathecal [RC] ASDIRECTED 03/12/21 06:55 Acetaminophen [TylenoL] 650 mg PO Q4H PRN Carboprost Tromethamine [Hemabate DS] 250 mcg IM ASDIRECTED PRN Lidocaine 1% [Xylocaine-MPF 1%] 30 ml INJECT ASDIRECTED PRN Methylergonovine [Methergine] 0.2 mg IM ASDIRECTED PRN Ondansetron [Zofran] 4 mg IVPUSH Q4H PRN Sodium Chloride 0.9% [Saline Flush] 10 ml FLUSH ASDIRECTED PRN Tranexamic Acid [Cyklokapron] 1,000 mg Sodium Chloride 0.9% [Normal Saline] 100 ml IV ONETIME miSOPROStoL [Cytotec] 800 mcg RECTAL ASDIRECTED PRN Resuscitation Status Routine 03/12/21 06:56 Patient Status [ADT] Routine Communication Order [RC] ASDIRECTED Notify Provider Vital Signs OB [RC] ASDIRECTED Notify Provider [RC] PRN Up ad Swati [RC] ASDIRECTED Vital Signs [RC] PER UNIT ROUTINE Saline Lock Insert [OM.PC] Routine 03/12/21 07:00 Lactated Ringers [Ringers, Lactated] 1,000 ml IV ASDIRECTED Oxytocin/Normal Saline [Pitocin in NS 30 UNIT/500 ML] 30 unit in 500 ml IV TITRATE 03/12/21 Breakfast Regular Diet [DIET] 03/12/21 07:45 Oxytocin/Normal Saline [Pitocin in NS 30 UNIT/500 ML] 30 unit in 500 ml IV TITRATE 03/12/21 11:37 Communication Order [RC] PER UNIT ROUTINE 03/12/21 11:45 Sodium Chloride 0.9% [Normal Saline] 1,000 ml IV ASDIRECTED 03/12/21 Lunch Regular Diet [DIET] 03/12/21 15:46 Up ad Swati [RC] ASDIRECTED Vital Signs [RC] PFP Benzocaine/Menthol [Dermoplast Pain Relief 20%-0.5% [place]] See Dose Instructio ns TOP Q4H PRN Docusate Sodium [Colace] 100 mg PO BID PRN Ibuprofen [Motrin] 800 mg PO Q8H PRN Oxytocin [Pitocin] 10 unit IM ONETIME PRN Simethicone 80 mg PO Q4H PRN Sodium Chloride 0.9% [Saline Flush] 10 ml FLUSH ASDIRECTED PRN Zolpidem [Ambien] 5 mg PO BEDTIME PRN ceFAZolin [Ancef] 1 gm Sodium Chloride 0.9% [Normal Saline] 50 ml IV Q8HR Assess Lochia [WOMSER] Per Unit Routine Assess Uterine Involution [WOMSER] Per Unit Routine Breast Pump [WOMSER] Per Unit Routine Ice Therapy [OM.PC] Per Unit Routine Perineal Care [OM.PC] Per Unit Routine Saline Lock Insert [OM.PC] Urgent Sitz Bath [OM.PC] Per Unit Routine 03/12/21 15:48 Patient Status Manage Transfer [TRANSFER] Routine 03/12/21 Dinner Regular Diet [DIET] 03/13/21 06:00 CBC W/O DIFF,HEMOGRAM [HEME] Routine 03/13/21 09:00 Vit with Ca/FA/Iron [ Plus Iron] 1 each PO DAILY
[2021-03-12] MEDS: ceFAZolin 1 GM in Sodium Chloride 0.9% 50 ML IV SCH ×2 (17:55→22:18)
[2021-03-12] MEDS: Ibuprofen 800 MG Tab PO PRN (19:18)
[2021-03-12] MEDS: Docusate Sodium 100 MG Cap PO PRN (19:19)
[2021-03-13] MEDS: ceFAZolin 1 GM in Sodium Chloride 0.9% 50 ML IV SCH ×2 (05:49→14:05)
[2021-03-13] MEDS: Docusate Sodium 100 MG Cap PO PRN (08:19)
[2021-03-13] MEDS: Ibuprofen 800 MG Tab PO PRN (08:19)
[2021-03-13 08:28] VITALS: BP 108/70; PULSE 93
[2021-03-13] MEDS ORDERED: Prenatal Multivitamin with Calcium/Folic Acid/Iron Tab PO SCH (09:00)
--- NOTE | 2021-03-14 13:24 | DEL ---
DATE: 03/12/2021 PREOPERATIVE DIAGNOSES: 1. Intrauterine at 38-2/7 weeks, confirmed with 21-3/7 weeks ultrasound. 2. Recurrent variable decelerations initially in the first stage of labor, resolved with amnioinfusion and then noted in second stage, recurrent with slow recovery with vacuum-assisted vaginal delivery done as below. 3. Active labor upon admission. 4. Group B Streptococcus negative. 5. Hepatitis C antibody positive. 6. History of herpes, on Valtrex. No lesions noted. 7. Anemia, hemoglobin of 9.7 upon admission. 8. -0-0-1. POSTOPERATIVE DIAGNOSES: 1. Intrauterine at 38-2/7 weeks, confirmed with 21-3/7 weeks ultrasound - delivered. 2. Recurrent variable decelerations initially in the first stage of labor, resolved with amnioinfusion and then noted in second stage, recurrent with slow recovery with vacuum-assisted vaginal delivery done as below. 3. Active labor upon admission. 4. Group B Streptococcus negative. 5. Hepatitis C antibody positive. 6. History of herpes, on Valtrex. No lesions noted. 7. Anemia, hemoglobin of 9.7 upon admission. 8. G2, P1-0-0-1. 9. Nuchal cord x1 reduced bluntly with delivery. 10.Uterine atony requiring bimanual exam, rectal Cytotec, and increased Pitocin dosing. 11.Retained placental membranes requiring bimanual exam and finger uterine curettage with removal of placental membranes. PROCEDURE PERFORMED: Nonstress test followed by artificial rupture of membranes. Pitocin augmentation was then subsequently stopped due to status. Intrauterine pressure catheter placement, scalp electrode placement, and subsequent vacuum assisted vaginal delivery with bimanual exam and finger uterine curettage with removal of placental membranes. ANESTHESIA/ANALGESIA: The patient did receive an intrathecal in the first stage of labor x2. ESTIMATED BLOOD LOSS: 350 mL. FINDINGS: Male. scores and weight are pending. Nuchal cord x1 noted and reduced bluntly at delivery. SUMMARY OF EVENTS: The patient is a 21-year-old G2, P1-0-0-1 intrauterine at 38-2/7 weeks, confirmed with 21-3/7 weeks ultrasound and presented in active labor. She did receive an intrathecal in the first stage of labor, had artificial rupture membranes with scant amount of fluid, and subsequently was re-evaluated with slow cervical dilation and amnio hook was used as there was concern of continued bag of fluid. Minimal fluid returned after artificial rupture membranes, and IUPC was subsequently placed. deceleration was noted shortly thereafter as low as in the 60s lasting approximately 5 to 7 minutes and scalp electrode was placed emergently as needed to detect heart tones and determine status. Recovery was noted thereafter with position changes, IV fluid bolus, oxygen, and stopping the Pitocin. status was closely followed thereafter, improved and was reassuring and reactive, and subsequently Pitocin was restarted. The patient continued in labor, did receive a second intrathecal. I subsequently presented to the room, evaluated her as there were some early decelerations noted, and she was found to be in the second stage of labor. She started pushing with contractions thereafter. I donned sterile gown and gloves. Colón catheter was placed under sterile conditions. Approximately 500 mL of peng to yellow-colored urine returned. Catheter was removed. The patient continued pushing with contraction, and there were recurrent variable decelerations with longer recoveries serially. Subsequently, I did discuss with the patient recommendation to proceed with Kiwi vacuum-assisted vaginal delivery. Did discuss with her and her male partner, risks, benefits, alternatives, and complications. They understood, agreed, and wished to proceed. Verbal consent was obtained, and questions were answered. Subsequently, with the next episode of pushing, vertex was seen splitting the labia. scalp electrode was removed prior to this. Subsequently with Kiwi vacuum, large cup was applied to vertex, pumped up to the green, and with this contraction with pushing, vertex was delivered. Vacuum was disengaged. CARLOTTA presentation was noted. Nuchal cord x1, reduced bluntly and then anterior and posterior shoulder as well as rest of the delivered without difficulty. Mouth and nares were suctioned. Cord was doubly clamped and cut. Infant was resuscitated on mother's abdomen. Then, approximately 10 mL of cord blood was obtained for labs. Placenta then delivered with gentle cord traction and fundal massage within 5 minutes. Perineum, vagina, and perirectal areas were then found without any lacerations and were found to be hemostatic. Fundal massage ensued as well as Pitocin and increased bleeding was noted with uterine atony. Rectal Cytotec 800 mcg was subsequently given. Despite these interventions, continued bleeding was noted. There appeared to be a clot at the opening of the cervix that could be seen with fundal massage vaginally. Subsequently, bimanual exam was done with finger uterine curettage removing this clot as well as removing placental membranes parts that were able to be confirmed visually. Bleeding decreased thereafter. Pitocin continued. Mother and infant are currently stable at time of dictation. Ancef will be given due to the bimanual exam. Please see orders. MODL /[id number] MTDD
--- NOTE | 2021-03-15 07:29 | DISCH ---
INDICATION FOR ADMISSION: Ms. Hawkins is a 21-year-old, 2, para 1-0-0-1 female at 38 and 2/7 weeks' gestation who reported to Labor and Delivery at [facility] in [facility] because of increasing force and frequency of contractions. On admission, she was 3 cm dilated, then she dilated to 4+ cm. After admission, artificial rupture of membranes occurred with clear fluid noted. She tolerated her labor quite well. She did get an intrathecal for pain control. She then started having some decelerations noted and an intrauterine pressure catheter and a scalp electrode were placed and she continued in labor quite well. Once she got uncomfortable again, a second intrathecal was placed. Once she got to completely dilated, she started pushing and she started having deep variable decelerations, so a Kiwi low vacuum- assisted vaginal delivery occurred with no pop-offs and the viable male weighing 7 pounds 9 ounces, 20-1/4 inches long with score of 6 at 1 minute, 9 at 5 minutes was delivered over an intact perineum. The cord was 3-vessel, not around the neck. The placenta was delivered by manual extraction, intact. She did receive Ancef 2 g IV x3 doses after the delivery. She recovered quite well. She tolerated the rest of her hospital stay. She was afebrile. Vital signs were stable. She tolerated her diet well and ambulated quite well. No complications occurred throughout her hospital stay. She had minimal lochia. She was discharged to home on day #1. LABORATORY AND DIAGNOSTIC STUDIES: 03/12/2021, WBC 10.6, hemoglobin 9.7, hematocrit 31.2, platelet count 264,000. 03/13/2021, WBC 12.3, hemoglobin 9.5, hematocrit 30.2, platelet count 219,000. COVID testing was negative on admission. DISCHARGE INSTRUCTIONS: 1. Discharge to home. 2. Follow up with Dr. Riggins for 6-week followup. 3. No douching, tampons, intercourse for 6 weeks. 4. Discharge instructions including activity, followup, medications, and diet were discussed with the patient. She understands these and is willing to comply with these. 5. Ibuprofen p.r.n. for pain. 6. vitamin and iron daily. DISCHARGE DIAGNOSES: 1. A 38 and 2/7 weeks intrauterine . 2. Active labor. 3. Artificial rupture of membranes. 4. Group B Streptococcus vaginal culture negative. 5. Hepatitis C positive. 6. History of genital herpes, on Valtrex for prophylaxis. No recent outbreak. 7. Chronic anemia of . 8. Deep variable decelerations during second-stage labor. 9. Vacuum-assisted vaginal delivery of a viable male infant weighing 7 pounds 9 ounces, 20-1/4 inches long with score of 6 at 1 minute, 9 at 5 minutes. 10.Intrathecal anesthesia. 11.Manual removal of placenta. [facility] /[id number]
== END 2021-03-13 16:00 | disposition home or self-care (01) | DRG 806 ==
LOC: DL.OBCHECK 03:31 → EEVIPCON 06:17 → DL.OB 06:17
PROVIDERS: ADMIT Family Medicine; ATTEND Family Medicine
PROC: 10D07Z6 Extraction of Products of Conception, Vacuum, Via Natural or Artificial Opening (ICD-10-PCS; principal; 2021-03-12)
PROC: 10D17Z9 Manual Extraction of Products of Conception, Retained, Via Natural or Artificial Opening (ICD-10-PCS; 2021-03-12)
PROC: 10907ZC Drainage of Amniotic Fluid, Therapeutic from Products of Conception, Via Natural or Artificial Opening (ICD-10-PCS; 2021-03-12)
PROC: 10H07YZ Insertion of Other Device into Products of Conception, Via Natural or Artificial Opening (ICD-10-PCS; 2021-03-12)
PROC: 3E0R3BZ Introduction of Anesthetic Agent into Spinal Canal, Percutaneous Approach (ICD-10-PCS; 2021-03-12)
PROC: 00HU33Z Insertion of Infusion Device into Spinal Canal, Percutaneous Approach (ICD-10-PCS; 2021-03-12)
PROC: 10H073Z Insertion of Monitoring Electrode into Products of Conception, Via Natural or Artificial Opening (ICD-10-PCS; 2021-03-12)
DX: O99.02 Anemia complicating childbirth (principal); O72.1 Other immediate postpartum hemorrhage; Z37.0 Single live birth; O72.0 Third-stage hemorrhage; O98.32 Other infections with a predominantly sexual mode of transmission complicating childbirth; D64.9 Anemia, unspecified; Z3A.38 38 weeks gestation of pregnancy; O76 Abnormality in fetal heart rate and rhythm complicating labor and delivery; Z20.822 Contact with and (suspected) exposure to COVID-19; O73.0 Retained placenta without hemorrhage; O69.81X0 Labor and delivery complicated by cord around neck, without compression, not applicable or unspecified; A60.09 Herpesviral infection of other urogenital tract
CPT/HCPCS: 01967; 36415; 51701; 59409; 85027; A9270-GY; J0171; J0690; J2590; J3010; J7030; J7120; U0002